=== PATIENT | female | born 1990 | race Caucasian/White ===

== ENCOUNTER → 2024-01-03 15:04 | Outpatient (REF) | payer OTHER, SELFPAY | LOC: HWEVLT 15:04 | PROVIDERS: ATTENDING PHYSICIAN Radiology Diagnostic Radiology | DX: I83.893 Varicose veins of bilateral lower extremities with other complications (principal) | CPT/HCPCS: 93970 ==

== ENCOUNTER 2024-11-20 11:55 | Emergency (ER) | payer OTHER, SELFPAY ==
[2024-11-20 11:57] VITALS: BP 118/81
--- NOTE | 2024-11-20 16:04 | ED.GENMED ---
History of Present Illness
General
Chief Complaint: Head Injury
Source: patient
Exam Limitations: none
Time Seen by Provider: 11/20/24 12:50
Nursing documentation reviewed up to this point in time: agreed with
History of Present Illness
History of Present Illness:
see MDM
Past History
Past History
ED Past Medical History: Other (Lupus); Negative Asthma, HTN, Hypercholesterolemia or NIDDM
ED Past Surgical History: None
Social History
Tobacco: Non-smoker
Alcohol: Occasional
Personal:
Living: with family
Review of Systems
Review of Systems
Allergies reviewed?: Yes
All Other Systems: Not applicable
Phy Exam
Physical Exam
Physical Exam:
GENERAL: Alert , in no apparent distress
HEAD: NCAT normocephalic, atraumatic, tender to the left parietal scalp but there is no hematoma
NECK: no midline tenderness, active ROM intact, no paraspinal muscle tenderness;
EYE: pupils equal and reactive, EOMs intact.
ENT: o/p clr, mmm. no hemotympanum
CARDIAC: Regular rate and rhythm, no edema
LUNGS: Clear breath sounds bilaterally, no acute respiratory distress, no wheezes/rales/rhonchi
ABDOMEN: Soft, without focal tenderness, no r/g, no cvat
NEUROLOGICAL: Alert and oriented x 4, no focal neuro deficits, CN intact, 5/5 strength, sensation intact, normal [id number]
SKIN: Warm and dry,
MUSCULOSKELETAL: No edema, well perfused.
PSYCH: Normal and appropriate interaction.
Course
Orders/Labs/Results
Orders:
Orders
11/20/24 13:47
CT Head W/o Iv Contrast Urgent
Comment:
Reason For Exam: hit head, tender L temporal region; dizziness
Vital Signs
Initial and Last Documented VS:
Initial Vital Signs
Temp Pulse Resp BP Pulse Ox
36.5 C 77 18 118/81 100
11/20/24 11:57 11/20/24 11:57 11/20/24 11:57 11/20/24 11:57 11/20/24 11:57
Last Documented Vital Signs
Temp Pulse Resp BP Pulse Ox
36.5 C 77 18 118/81 100
11/20/24 11:57 11/20/24 11:57 11/20/24 11:57 11/20/24 11:57 11/20/24 16:06
MDM/Problems Addressed
Differential Diagnosis Includes:
see MDM
MDM/Problems Addressed:
Note:
CHIEF COMPLAINT(S)
Head injury with head pain, dizziness, and sensitivity to touch.
HISTORY OF PRESENT ILLNESS
The patient is a 34-year-old female with a history of lupus who presented after sustaining a head injury. The incident occurred yesterday around noon while she was bending down to pick remover shoes for her children. Upon standing up, she hit her head on
a hook located above her rastafarian. The patient described immediate pain, particularly sensitive, without loss of consciousness or dizziness at that time. She drove her children home, a two-hour car ride, during which the pain persisted.
Last night while attempting to sleep, she experienced dizziness each time she closed her eyes but felt better upon awakening. This morning, she noted the pain had decreased but increased again as the day progressed, accompanied by some dizziness.
She denied any blurry vision but mentioned feeling lightheaded. The patient denied fogginess, trouble thinking, or spinning sensation, attributing some of her symptoms to fatigue from being up with her [id number] child early in the morning.
She also noted increased head sensitivity, which felt bruised and tender to touch or brush against, though she has not identified any lump at the injury site. The patient reported mild nausea last night but none today and has not experienced
vomiting. She has not taken any pain relief medications as she wanted to monitor her condition carefully.
CHRONIC MEDICAL CONDITIONS SIGNIFICANTLY AFFECTING CARE
The patient has a history of lupus, currently managed with belimumab and hydroxychloroquine, resulting in fairly controlled symptoms, primarily inflammation, and arthritis-like symptoms.
REVIEW OF SYSTEMS
- Neurologic: Dizziness, lightheadedness, and sensitivity to touch at the head injury site, but no loss of consciousness, numbness, tingling, or blurry vision.
- Gastrointestinal: Mild nausea last night, resolved by today, no vomiting.
- General: Fatigue, likely due to lack of sleep.
PHYSICAL EXAM
- Head/Neck: Tenderness to touch at the site of impact above the rastafarian, no palpable swelling or hematoma reported.
- Neurologic: Lightheadedness with positional changes but no focal neurological deficits were mentioned.
- Nursing notes reviewed and vital signs reviewed.
PROBLEM LIST
Acute:
- Head injury with persistent pain and dizziness
Chronic:
- Lupus
DIFFERENTIAL DIAGNOSIS
The Differential Diagnosis includes, in no particular order and is not limited to:
1. Concussion
2. Post-traumatic headache
3. Contusion
4. Intracranial hemorrhage
5. Post-concussion syndrome
6. Cervical spine injury
7. Scalp hematoma
8. Lupus flare
9. Anxiety or stress-related symptoms
10. Vestibular dysfunction
34 y/o F
closed head injury yesterday
no LOC
no thinners
some sequelae of concussion, minimal
concerned; shared medical deicisoin making, low yield head ct but pt would prefer
ct head neg
d/c home
concussion precautions
*Pulse Oximetry
SaO2: 100
Oxygen Mode of Delivery: Room air
Patient hypoxic: no (100)
*Critical Care Note
Total Time (30-74mins, 75-104mins- exclusive of procedures): Not Applicable
ED Attending Note
-
Portions of this chart may have been created with voice recognition software.� Occasional wrong word or��sound alike� substitutions may have occurred due to the inherent limitations of voice recognition software.
Discharge Plan
Departure
Patient Disposition: Home (Routine Discharge)
Date of Disposition: 11/20/24
Time of Disposition: 15:23
Patient with high blood pressure during this ER visit?: No
Condition: Fair
Discharge Problem:
Concussion
Instructions: Concussion, Adult (DC)
Prescriptions:
No Action
hydroxychloroquine 200 MG tablet
400 mg PO DAILY
Rx Instructions:
Pt takes 2 200mg tablets daily
PNV no.95-ferrous fumarate-FA [] 1 EACH tablet
1 ea PO DAILY
acetaminophen 325 mg Tablet
650 mg PO Q4HPRN PRN (Reason: mild pain) Qty: 0 0RF
ibuprofen 600 mg Tablet
600 mg PO Q6HPRN PRN (Reason: moderate pain/cramps) Qty: 0 0RF
Referrals:
Philip Sahu CRNP [Family Provider, Family Practice] - Follow up in 2-3 days
Stand Alone Forms: Return to Work
Activity Restrictions/Additional Instructions:
YOUR CAT SCAN SHOWED NO ABNORMALITIES
BUT YOU LIKELY HAVE A MINOR CONCUSSION
For this we recommend 24-48 hours of brain rest to help your brain heal and your headache improve.
also use tylenol every 6 hours, motrin every 8 hours as needed for pain.
after 24-48 hours, you can return to normal activities.
if you are getting headaches, you may need to stop and rest. if you are still having headaches all week, follow up with your doctor
otherwise as long as you are well, you can advance activity as tolerated
return to the er for: worsening pain, vomiting, confusion, weakness, numbness/tingling in arms or legs or any concerns.
Interventions
Interventions:
*Risk Screen - Suicide Last Done: 11/20/24 11:57
*Neglect/Abuse Screening Last Done: 11/20/24 11:57
*Nursing Disposition Last Done: 11/20/24 15:33
ED- Neurological Assessment Last Done: 11/20/24 13:44
ED-Skin Assessment Last Done: 11/20/24 13:44
Discharge Date and Time
Discharge Date/Time: 11/20/24 15:33
Print Language: [id number]
== END 2024-11-20 15:33 | disposition home or self-care (01) ==
LOC: EMR 11:55
PROVIDERS: EMERGENCY PHYSICIAN Emergency Medicine; FAMILY PHYSICIAN Nurse Practitioner Family
DX: S06.0X0A Concussion without loss of consciousness, initial encounter (principal); W22.8XXA Striking against or struck by other objects, initial encounter
CPT/HCPCS: 99284; 70450